=== PATIENT | male | born 1960 | race Caucasian/White ===

== ENCOUNTER 2018-09-15 06:16 | Inpatient (IN) | payer MEDICARE, MEDICAID ==
[~2018-09-15] VITALS: Ht 162.6 cm; Wt 94.1 kg
[2018-09-18 13:41] VITALS: BP 128/86
== END 2018-09-18 15:15 | disposition home or self-care (01) | DRG 460 ==
LOC: ORIP 06:16 → 3WST 13:38 → ORIP 13:38 → 4NOR 15:22 → DCLOUNGE 09-18 15:04
PROVIDERS: ADMIT Orthopaedic Surgery Orthopaedic Surgery of the Spine; ATTEND Orthopaedic Surgery Orthopaedic Surgery of the Spine
PROC: 0SG804Z Fusion of Left Sacroiliac Joint with Internal Fixation Device, Open Approach (ICD-10-PCS; principal; 2018-09-15)
PROC: 0SG704Z Fusion of Right Sacroiliac Joint with Internal Fixation Device, Open Approach (ICD-10-PCS; 2018-09-15)
PROC: 0QP004Z Removal of Internal Fixation Device from Lumbar Vertebra, Open Approach (ICD-10-PCS; 2018-09-15)
PROC: 0QP104Z Removal of Internal Fixation Device from Sacrum, Open Approach (ICD-10-PCS; 2018-09-15)
PROC: 0QP204Z Removal of Internal Fixation Device from Right Pelvic Bone, Open Approach (ICD-10-PCS; 2018-09-15)
PROC: 0QP304Z Removal of Internal Fixation Device from Left Pelvic Bone, Open Approach (ICD-10-PCS; 2018-09-15)
PROC: 4A11X4G Monitoring of Peripheral Nervous Electrical Activity, Intraoperative, External Approach (ICD-10-PCS; 2018-09-15)
PROC: 0SG807Z Fusion of Left Sacroiliac Joint with Autologous Tissue Substitute, Open Approach (ICD-10-PCS; 2018-09-15)
PROC: 0SG80KZ Fusion of Left Sacroiliac Joint with Nonautologous Tissue Substitute, Open Approach (ICD-10-PCS; 2018-09-15)
PROC: 0SG707Z Fusion of Right Sacroiliac Joint with Autologous Tissue Substitute, Open Approach (ICD-10-PCS; 2018-09-15)
PROC: 0SG70KZ Fusion of Right Sacroiliac Joint with Nonautologous Tissue Substitute, Open Approach (ICD-10-PCS; 2018-09-15)
PROC: 0QU007Z Supplement Lumbar Vertebra with Autologous Tissue Substitute, Open Approach (ICD-10-PCS; 2018-09-15)
DX: T84.84XA Pain due to internal orthopedic prosthetic devices, implants and grafts, initial encounter (principal); M19.90 Unspecified osteoarthritis, unspecified site; M46.1 Sacroiliitis, not elsewhere classified; F41.9 Anxiety disorder, unspecified; I10 Essential (primary) hypertension; Y83.8 Other surgical procedures as the cause of abnormal reaction of the patient, or of later complication, without mention of misadventure at the time of the procedure; Y92.89 Other specified places as the place of occurrence of the external cause
CPT/HCPCS: 36415; 71046; 72100; 72202; 76000; 80053; 81003; 83036; 85025; 85610; 85651; 85730; 93005; C1713; G0378; J0690; J1100; J1170; J1885; J2175; J2250; J2270; J2405; J2704; J3010; J3370; C1760; C1762; C9362; J0330; J2800; J3480

== ENCOUNTER → 2019-08-27 | Outpatient (CLI) | payer MEDICARE, MEDICAID ==
[~2019-08-27] VITALS: Ht 162.6 cm; Wt 88.2 kg
[~2019-08-27] MED LIST: ALPR0.5T7 PO; BACL20TA PO; LISI-170 PO; METH750T2 PO; MUPI22OI2 TP; OXYC-307 PO
[2019-08-27 15:16] LABS: HCT (SEDRATE) 42.1 % (39.2-51.8)
[2019-08-27 15:20] LABS: BASOPHILS # (AUTO) 0.01 x10^3/uL (0-0.1); BASOPHILS % (AUTO) 0 % (0-1); EOSINOPHILS # (AUTO) 0.09 x10^3/uL (0-0.4); EOSINOPHILS % (AUTO) 2 % (1-7); LYMPHOCYTES # (AUTO) 1.37 x10^3/uL (1-3.4); LYMPHOCYTES % (AUTO) 30 % (22-44); MD NO; MEAN CORPUSCULAR HEMOGLOBIN 27.8 pg (27.5-34.5); MEAN CORPUSCULAR HGB CONC 31.5 g/dL (33.2-36.2); MEAN CORPUSCULAR VOLUME 88.2 fL (81-97); MEAN PLATELET VOLUME 8.1 fL (7.4-10.4); MONOCYTES # (AUTO) 0.39 x10^3/uL (0.2-0.8); MONOCYTES % (AUTO) 9 % (2-9); NEUTROPHILS # (AUTO) 2.74 x10^3/uL (1.8-6.8); NEUTROPHILS % (AUTO) 60 % (42-75); PLATELET COUNT 237 x10^3/uL (130-400); RED BLOOD COUNT 4.79 x10^6/uL (4.38-5.82); RED CELL DISTRIBUTION WIDTH 14.9 % (9.4-14.8)
[2019-08-27 15:26] LABS: ANION GAP 2 mmol/L (5-15); CHLORIDE 108 mmol/L (98-107); CREATININE 0.96 mg/dL (0.7-1.3); INTERNATIONAL NORMALIZED RATIO 0.97 (0.93-1.1); PROTHROMBIN TIME 10.3 Seconds (9.6-11.5)
[2019-08-27 15:44] LABS: ALANINE AMINOTRANSFERASE 30 U/L (12-78); ALBUMIN 3.6 g/dL (3.4-5.0)
[2019-08-27 15:46] LABS: ALKALINE PHOSPHATASE 99 U/L (45-117); BILIRUBIN,TOTAL 0.3 mg/dL (0.2-1.0); TOTAL PROTEIN 6.7 g/dL (6.4-8.2)
== END | disposition home or self-care (01) ==
LOC: STAR 08:00 → EDSTATUS 08-31 12:00
PROVIDERS: ATTEND Orthopaedic Surgery Orthopaedic Surgery of the Spine
DX: Z01.818 Encounter for other preprocedural examination (principal); Z11.59 Encounter for screening for other viral diseases; I10 Essential (primary) hypertension; M47.814 Spondylosis without myelopathy or radiculopathy, thoracic region
CPT/HCPCS: 36415; 71046; 80053; 83036; 85025; 85610; 85651; 85730; 87635; 93005

== ENCOUNTER 2019-08-31 10:30 | Inpatient (IN) | payer MEDICARE, MEDICAID ==
[~2019-08-31] VITALS: Ht 162.6 cm; Wt 88.5 kg
[2019-08-31] MEDS ORDERED: LACTATED RINGERS 1,000 ML IV SCH (11:13)
[2019-08-31] MEDS ORDERED: MIDAZOLAM 1 MG/ML, 2ML ONE (11:30)
[2019-08-31] MEDS ORDERED: ACETAMINOPHEN 500 MG TABLET PO ONE (11:30)
[2019-08-31] MEDS ORDERED: PLEASE ENTER ALLERGIES MC SCH (11:30)
[2019-08-31] MEDS ORDERED: FENTANYL PF 250 MCG/5ML ONE (11:30)
[2019-08-31] MEDS ORDERED: PLEASE ENTER HEIGHT AND WEIGHT MC SCH (11:30)
[2019-08-31] MEDS ORDERED: GABAPENTIN 300 MG CAPSULE PO ONE (11:30)
[2019-08-31] MEDS ORDERED: CHLORHEXIDINE 15 ML UDC MM ONE (11:30)
[2019-08-31] MEDS ORDERED: PROPOFOL 100 ML ONE (11:31)
[2019-08-31] MEDS ORDERED: NEOSTIGMINE 1 MG/ML, 10ML ONE (11:36)
[2019-08-31] MEDS ORDERED: PROPOFOL 10 MG/ML, 20ML ONE ×2 (11:36→15:10)
[2019-08-31] MEDS ORDERED: CEFAZOLIN 1,000 MG ONE (11:36)
[2019-08-31] MEDS ORDERED: ROCURONIUM 10MG/ML,5ML ONE (11:36)
[2019-08-31] MEDS ORDERED: GLYCOPYRROLATE 0.2MG/1ML, 5ML ONE (11:36)
[2019-08-31] MEDS ORDERED: GABAPENTIN 300 MG CAPSULE ONE (11:40)
[2019-08-31] MEDS ORDERED: ACETAMINOPHEN 500 MG TABLET ONE (11:41)
[2019-08-31] MEDS ORDERED: CHLORHEXIDINE 15 ML UDC ONE (11:41)
[2019-08-31] MEDS ORDERED: VANCOMYCIN PMX 1GM/200ML 200 ML IV ONE (11:45)
[2019-08-31] MEDS ORDERED: BUPIVACAINE/PF 0.5% ONE (12:34)
[2019-08-31] MEDS ORDERED: BACITRACIN 50,000 UNIT ONE (12:35)
[2019-08-31] MEDS ORDERED: VANCOMYCIN 1,000 MG ONE (12:35)
[2019-08-31] MEDS ORDERED: EPINEPHRINE 1 MG/ML, 1ML ONE (12:35)
[2019-08-31] MEDS ORDERED: TRANEXAMIC ACID 100 MG/ML, 10ML ONE (12:35)
[2019-08-31] MEDS ORDERED: ONDANSETRON 2MG/ML, 2ML IVPush PRN (13:00)
[2019-08-31] MEDS ORDERED: LABETALOL 5MG/ML, 20ML IV PRN (13:00)
[2019-08-31] MEDS ORDERED: morphine SULFATE 10 MG/ML, 1ML IVPush PRN ×2 (13:00→16:00)
[2019-08-31] MEDS ORDERED: HYDROmorphone 1 MG/ML, 1ML INJ IVPush PRN (13:00)
[2019-08-31] MEDS ORDERED: hydrALAzine 20 MG/ML, 1ML IV PRN (13:00)
[2019-08-31] MEDS ORDERED: OXYcodone 5 MG/5 ML ORAL.SOL UDC PO PRN (13:00)
[2019-08-31] MEDS ORDERED: FENTANYL PF 100 MCG/2ML IV PRN (13:00)
[2019-08-31] MEDS ORDERED: MEPERIDINE/PF 25MG/0.5ML IVPush PRN (13:00)
[2019-08-31] MEDS ORDERED: PHENYLEPHRINE 10 MG/ML ONE (13:14)
[2019-08-31] MEDS ORDERED: FENTANYL PF 100 MCG/2ML ONE ×2 (15:15→16:19)
[2019-08-31] MEDS ORDERED: SODIUM CHLORIDE 0.9% 1,000 ML IV PRN (15:49)
[2019-08-31] MEDS ORDERED: DIPHENHYDRAMINE 50 MG/ML, 1ML IM PRN (16:00)
[2019-08-31] MEDS ORDERED: LORazepam 1MG TABLET PO PRN (16:00)
[2019-08-31] MEDS ORDERED: PROMETHAZINE 25 MG/ML, 1ML IM PRN (16:00)
[2019-08-31] MEDS ORDERED: DIPHENHYDRAMINE 50 MG/ML, 1ML IVPush PRN (16:00)
[2019-08-31] MEDS ORDERED: KETOROLAC 30 MG/1 ML IVPush ONE (16:00)
[2019-08-31] MEDS ORDERED: DIPHENHYDRAMINE 50 MG CAPSULE PO PRN (16:00)
[2019-08-31] MEDS ORDERED: DEXAMETHASONE 4 MG/ML, 5ML IVPush PRN (16:00)
[2019-08-31] MEDS ORDERED: BISACODYL 10 MG SUPP PR PRN (16:00)
[2019-08-31] MEDS ORDERED: KETOROLAC 30 MG/1 ML IVPush PRN (16:00)
[2019-08-31] MEDS ORDERED: SENNA/DOCUSATE TABLET PO PRN (16:00)
[2019-08-31] MEDS ORDERED: DIAZEPAM 5 MG TABLET PO PRN (16:00)
[2019-08-31] MEDS ORDERED: OXYcodone 5 MG/5 ML ORAL.SOL UDC ONE (16:19)
[2019-08-31] MEDS: DICLOFENAC SODIUM 75 MG TABLET.DR PO SCH (17:00)
[2019-08-31] MEDS: METHOCARBAMOL 1,000 MG in DEXTROSE 5% 100 ML IV SCH (17:00)
[2019-08-31] MEDS ORDERED: KETOROLAC 30 MG/1 ML ONE (17:06)
[2019-08-31] MEDS ORDERED: DEXAMETHASONE 4 MG/ML, 1ML IVPush PRN (18:30)
[2019-08-31 19:08] VITALS: BP 126/66
[2019-08-31] MEDS: D5%-0.9% NACL+KCL 20MEQ 1,000 ML IV SCH (20:18)
[2019-08-31] MEDS: CEFAZOLIN PMX 1GM/50ML 50 ML IVPB SCH (20:18)
[2019-08-31] MEDS: OXYcodone IR 5MG TABLET PO PRN ×2 (20:37→23:42)
[2019-08-31] MEDS ORDERED: ZOLPIDEM 5MG TABLET PO PRN (21:00)
[2019-09-01 00:25] VITALS: BP 109/69
[2019-09-01] MEDS: METHOCARBAMOL 1,000 MG in DEXTROSE 5% 100 ML IV SCH ×3 (01:06→17:25)
[2019-09-01] MEDS: OXYcodone IR 5MG TABLET PO PRN ×5 (03:02→23:57)
[2019-09-01 03:25] VITALS: BP 126/84
[2019-09-01] MEDS: CEFAZOLIN PMX 1GM/50ML 50 ML IVPB SCH (04:10)
[2019-09-01 05:34] LABS: BASOPHILS # (AUTO) 0.04 x10^3/uL (0-0.1); BASOPHILS % (AUTO) 1 % (0-1); EOSINOPHILS # (AUTO) 0.11 x10^3/uL (0-0.4); EOSINOPHILS % (AUTO) 1 % (1-7); LYMPHOCYTES # (AUTO) 2.14 x10^3/uL (1-3.4); LYMPHOCYTES % (AUTO) 24 % (22-44); MD NO; MEAN CORPUSCULAR HEMOGLOBIN 28.6 pg (27.5-34.5); MEAN CORPUSCULAR HGB CONC 32.6 g/dL (33.2-36.2); MEAN PLATELET VOLUME 8.9 fL (7.4-10.4); MONOCYTES # (AUTO) 0.77 x10^3/uL (0.2-0.8); MONOCYTES % (AUTO) 9 % (2-9); NEUTROPHILS # (AUTO) 5.83 x10^3/uL (1.8-6.8); NEUTROPHILS % (AUTO) 66 % (42-75); PLATELET COUNT 230 x10^3/uL (130-400); RED BLOOD COUNT 4.25 x10^6/uL (4.38-5.82); RED CELL DISTRIBUTION WIDTH 14.2 % (9.4-14.8)
[2019-09-01] MEDS: D5%-0.9% NACL+KCL 20MEQ 1,000 ML IV SCH ×2 (06:15→18:38)
[2019-09-01 07:17] VITALS: BP 109/72
[2019-09-01] MEDS: DICLOFENAC SODIUM 75 MG TABLET.DR PO SCH ×2 (09:01→17:00)
[2019-09-01] MEDS: ONDANSETRON 2MG/ML, 2ML IV PRN (11:10)
[2019-09-01 12:59] VITALS: BP 117/71
[2019-09-01] MEDS: MAGNESIUM HYDROXIDE 8%, 30ML UDC PO PRN (15:03)
[2019-09-01] MEDS: HYDROmorphone 1 MG/ML, 1ML INJ IV PRN ×2 (17:14→21:44)
[2019-09-01] MEDS: METHOCARBAMOL 750 MG TABLET PO SCH (17:25)
[2019-09-01 19:36] VITALS: BP 110/72
[2019-09-01] MEDS: ACETAMINOPHEN 500 MG TABLET PO PRN (20:35)
[2019-09-02] MEDS: METHOCARBAMOL 750 MG TABLET PO SCH ×4 (00:55→23:19)
[2019-09-02] MEDS: METHOCARBAMOL 1,000 MG in DEXTROSE 5% 100 ML IV SCH ×2 (01:00→10:26)
[2019-09-02] MEDS: HYDROmorphone 1 MG/ML, 1ML INJ IV PRN ×3 (01:08→05:45)
[2019-09-02] MEDS: D5%-0.9% NACL+KCL 20MEQ 1,000 ML IV SCH ×3 (01:13→21:38)
[2019-09-02 01:52] VITALS: BP 107/64
[2019-09-02] MEDS: ACETAMINOPHEN 500 MG TABLET PO PRN ×3 (02:53→16:02)
[2019-09-02] MEDS: OXYcodone IR 5MG TABLET PO PRN ×3 (04:39→23:19)
[2019-09-02 05:41] LABS: BASOPHILS # (AUTO) 0.01 x10^3/uL (0-0.1); BASOPHILS % (AUTO) 0 % (0-1); EOSINOPHILS # (AUTO) 0.16 x10^3/uL (0-0.4); EOSINOPHILS % (AUTO) 2 % (1-7); LYMPHOCYTES # (AUTO) 1.75 x10^3/uL (1-3.4); LYMPHOCYTES % (AUTO) 19 % (22-44); MD NO; MEAN CORPUSCULAR HEMOGLOBIN 28.6 pg (27.5-34.5); MEAN CORPUSCULAR HGB CONC 32.4 g/dL (33.2-36.2); MEAN PLATELET VOLUME 8.6 fL (7.4-10.4); MONOCYTES # (AUTO) 1.23 x10^3/uL (0.2-0.8); MONOCYTES % (AUTO) 13 % (2-9); NEUTROPHILS # (AUTO) 6.26 x10^3/uL (1.8-6.8); NEUTROPHILS % (AUTO) 66 % (42-75); PLATELET COUNT 223 x10^3/uL (130-400); RED BLOOD COUNT 4.16 x10^6/uL (4.38-5.82); RED CELL DISTRIBUTION WIDTH 14.5 % (9.4-14.8)
[2019-09-02 07:41] VITALS: BP 129/82
[2019-09-02] MEDS: DICLOFENAC SODIUM 75 MG TABLET.DR PO SCH ×2 (08:00→16:05)
[2019-09-02] MEDS: MAGNESIUM HYDROXIDE 8%, 30ML UDC PO PRN (13:13)
[2019-09-02 13:27] VITALS: BP 122/77
[2019-09-02] MEDS ORDERED: MAGNESIUM CITRATE 300ML ORAL SOL ONE (16:07)
[2019-09-02] MEDS ORDERED: MAGNESIUM CITRATE 300ML ORAL SOL PO PRN (16:30)
[2019-09-02 20:10] VITALS: BP 137/75
[2019-09-03 01:19] VITALS: BP 135/88
[2019-09-03] MEDS: ACETAMINOPHEN 500 MG TABLET PO PRN ×2 (01:26→07:13)
[2019-09-03] MEDS: ONDANSETRON 2MG/ML, 2ML IV PRN (01:27)
[2019-09-03] MEDS: OXYcodone IR 5MG TABLET PO PRN ×2 (02:11→05:14)
[2019-09-03 05:30] LABS: BASOPHILS # (AUTO) 0.03 x10^3/uL (0-0.1); BASOPHILS % (AUTO) 0 % (0-1); EOSINOPHILS # (AUTO) 0.06 x10^3/uL (0-0.4); EOSINOPHILS % (AUTO) 1 % (1-7); LYMPHOCYTES # (AUTO) 1.41 x10^3/uL (1-3.4); LYMPHOCYTES % (AUTO) 15 % (22-44); MD NO; MEAN CORPUSCULAR HEMOGLOBIN 28.3 pg (27.5-34.5); MEAN PLATELET VOLUME 8.4 fL (7.4-10.4); MONOCYTES # (AUTO) 1.06 x10^3/uL (0.2-0.8); MONOCYTES % (AUTO) 11 % (2-9); NEUTROPHILS # (AUTO) 6.85 x10^3/uL (1.8-6.8); NEUTROPHILS % (AUTO) 73 % (42-75); PLATELET COUNT 237 x10^3/uL (130-400); RED BLOOD COUNT 4.49 x10^6/uL (4.38-5.82); RED CELL DISTRIBUTION WIDTH 14.3 % (9.4-14.8)
[2019-09-03 06:55] VITALS: BP 139/76
[2019-09-03] MEDS: D5%-0.9% NACL+KCL 20MEQ 1,000 ML IV SCH (08:00)
[2019-09-03] MEDS: DICLOFENAC SODIUM 75 MG TABLET.DR PO SCH (08:00)
[2019-09-03] MEDS: METHOCARBAMOL 750 MG TABLET PO SCH (08:08)
== END 2019-09-03 11:35 | disposition home or self-care (01) | DRG 520 ==
LOC: ORIP 10:30 → 4NE 17:26 → DCLOUNGE 09-03 11:27
PROVIDERS: ADMIT Orthopaedic Surgery Orthopaedic Surgery of the Spine; ATTEND Orthopaedic Surgery Orthopaedic Surgery of the Spine
PROC: 01NB0ZZ Release Lumbar Nerve, Open Approach (ICD-10-PCS; 2019-08-31)
PROC: BR191ZZ Fluoroscopy of Lumbar Spine using Low Osmolar Contrast (ICD-10-PCS; 2019-08-31)
PROC: 0SB00ZZ Excision of Lumbar Vertebral Joint, Open Approach (ICD-10-PCS; 2019-08-31)
PROC: 4A11X4G Monitoring of Peripheral Nervous Electrical Activity, Intraoperative, External Approach (ICD-10-PCS; principal; 2019-08-31 12:00)
DX: M48.061 Spinal stenosis, lumbar region without neurogenic claudication (principal); K59.00 Constipation, unspecified; Z98.1 Arthrodesis status; M54.16 Radiculopathy, lumbar region; M41.9 Scoliosis, unspecified
CPT/HCPCS: 36415; 72100; 76000; 85025; 95938; 95941; G0378; J0171; J0690; J1170; J1885; J2250; J2405; J2704; J2710; J3010; J3370; C1760; J2270; J2370; J2800; J3480; J7120